=== PATIENT | male | born 1980 | race Two or more races ===

== ENCOUNTER 2017-07-19 03:29 | Emergency (ER) | payer MEDICAID, OTHER ==
[~2017-07-19] VITALS: Ht 177.8 cm; Wt 86.2 kg
[~2017-07-19 03:29] MED LIST: LITH150C PO; QUET25TA PO
--- NOTE | 2017-07-19 03:57 | NUR ---
PT TO ER BED 6. PT BIBRA FROM THE STREET FOR "WHEEZING". 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 VSS/RESP EVEN UNLABORED/NAD NOTED/AFEBRILE/SKIN WARM AND DRY/DENIES N-V-D/AOX4. AWAITING MD RICKETTS.
[2017-07-19] MEDS ORDERED: IPRATROPIUM NEB FS 0.5 MG/2.5 ML AMPUL.NEB ONE (04:51)
[2017-07-19] MEDS ORDERED: ALBUTEROL FS 2.5 MG/3 ML VIAL.NEB ONE (04:51)
--- NOTE | 2017-07-19 04:55 | NUR ---
RT AT BEDSIDE FOR CARLTON AGUILERA
[2017-07-19] MEDS ORDERED: ALBUTEROL FS 2.5 MG/0.5 ML VIAL.NEB NEB ONE (05:00)
[2017-07-19] MEDS ORDERED: IPRATROPIUM NEB FS 0.5 MG/2.5 ML AMPUL.NEB NEB ONE (05:00)
--- NOTE | 2017-07-19 05:25 | NUR ---
Patient discharged to home in stable condition. Written and verbal after care instructions given. Patient verbalizes understanding of instruction. Patient ambulatory with a steady gait.
[2017-07-19 05:26] VITALS: BP 127/65
== END 2017-07-19 05:26 | disposition home or self-care (01) ==
LOC: ER 03:32
DX: J98.01 Acute bronchospasm (principal); J18.9 Pneumonia, unspecified organism; F20.9 Schizophrenia, unspecified; F17.200 Nicotine dependence, unspecified, uncomplicated
CPT/HCPCS: 71045; 94640; 99283; A4606; Z7610

== ENCOUNTER 2018-03-27 01:10 | Emergency (ER) | payer MEDICAID ==
[~2018-03-27] VITALS: Ht 190.5 cm; Wt 104.3 kg
[2018-03-27 01:18] VITALS: BP 137/95
[2018-03-27] MEDS ORDERED: ONDANSETRON 4 MG TAB.RAPDIS ONE (01:59)
[2018-03-27] MEDS ORDERED: ONDANSETRON 4 MG TAB.RAPDIS SL ONE (02:00)
== END 2018-03-27 02:08 | disposition home or self-care (01) ==
LOC: ER 01:14
DX: R11.0 Nausea (principal); J45.909 Unspecified asthma, uncomplicated; F20.9 Schizophrenia, unspecified; L30.9 Dermatitis, unspecified; F17.200 Nicotine dependence, unspecified, uncomplicated
CPT/HCPCS: 99283; A4606; Q0162; Z7610

== ENCOUNTER 2021-04-16 02:20 | Emergency (ER) | payer SELFPAY ==
[~2021-04-16] VITALS: Ht 188 cm; Wt 94.3 kg
--- NOTE | 2021-04-16 02:48 | NUR ---
pt bibself c/o left foot pain s/p being d/c for left foot cellulitis. pt aaox4 breathing evenly and unlabored. pt attached to monitor and pox. Upon assessment, pt left foot swollen. MD at bedside. Pt given blanket and call light within reach
--- NOTE | 2021-04-16 03:42 | NUR ---
pt sitting quietly watching tv, attached to monitor and pox.
[2021-04-16 04:40] LABS: HEMOGLOBIN 13.6 g/dL (13.5-17.5); NEUTROPHILS % (AUTO) 73.8 % (43.0-81.0); WHITE BLOOD COUNT (AUTO) 13.5 K/uL (4.3-11.0)
[2021-04-16 04:44] LABS: BASOPHILS # (AUTO) 0.1 K/uL (0.0-0.2); BASOPHILS % (AUTO) 0.6 % (0.0-2.0); EOSINOPHILS % (AUTO) 1.4 % (0.0-6.0); HEMATOCRIT 43 % (39-51); LYMPHOCYTES # (AUTO) 2.4 K/uL (0.8-4.8); LYMPHOCYTES % (AUTO) 17.6 % (20.0-44.0); MEAN CORPUSCULAR HGB CONC 32 g/dl (31.0-36.0); MEAN CORPUSCULAR VOLUME 80 fL (80-96); MONOCYTES # (AUTO) 0.9 K/uL (0.1-1.30); MONOCYTES % (AUTO) 6.6 % (2.0-12.0); NEUTROPHILS # (AUTO) 9.9 K/uL (1.8-8.9); PLATELET COUNT (AUTO) 362 K/uL (150-450); RED BLOOD CELL COUNT(AUTO) 5.37 MIL/uL (4.5-6.0)
[2021-04-16 04:47] LABS: CALCIUM, SERUM 9.2 mg/dL (8.5-10.1); CREATININE 0.8 mg/dL (0.6-1.3); POTASSIUM 3.8 mmol/L (3.5-5.1)
--- NOTE | 2021-04-16 04:50 | NUR ---
us at bedside
[2021-04-16] MEDS ORDERED: CEPHALEXIN MONOHYDRATE 500 MG CAPSULE PO ONE (05:42)
[2021-04-16] MEDS: CEPHALEXIN MONOHYDRATE 500 MG CAPSULE PO ONE (05:44)
--- NOTE | 2021-04-16 05:50 | NUR ---
xray at bedside
[2021-04-16] MEDS ORDERED: IBUP-1955 PO (06:29)
[2021-04-16] MEDS ORDERED: CEPH500C2 PO (06:29)
[2021-04-16 06:47] VITALS: BP 130/70
--- NOTE | 2021-04-16 06:47 | NUR ---
Patient discharged to home in stable condition. Written and verbal after care instructions given. Patient verbalizes understanding of instruction. RX given
== END 2021-04-16 06:48 | disposition home or self-care (01) ==
LOC: ER 02:22
DX: M79.604 Pain in right leg (principal); J45.909 Unspecified asthma, uncomplicated; F20.9 Schizophrenia, unspecified; F17.200 Nicotine dependence, unspecified, uncomplicated; Z79.899 Other long term (current) drug therapy
CPT/HCPCS: 36415; 73590-TC; 73630-TC; 80048-TC; 85025-TC; 93971-TC

== ENCOUNTER 2021-08-04 07:27 | Emergency (ER) | payer MEDICAID ==
[~2021-08-04] VITALS: Ht 188 cm; Wt 113.4 kg
[~2021-08-04 07:27] MED LIST changes: +CEPH500C2 PO; +IBUP-1955 PO
--- NOTE | 2021-08-04 07:53 | NUR ---
The patient bibs for "Been Coughing/congested/SOB/Bronchitis last 4d". In room air and respiration regular/unlabored. Will continue to monitor the patient.
--- NOTE | 2021-08-04 07:55 | NUR ---
COVID ANTIGEN SWAB DONE AND SENT TO THE LAB
--- NOTE | 2021-08-04 08:08 | NUR ---
X-RAY TECH AT THE BEDSIDE
[2021-08-04] MEDS ORDERED: IPRATROPIUM NEB FS 0.5 MG/2.5 ML AMPUL.NEB ONE (08:15)
[2021-08-04] MEDS ORDERED: ALBUTEROL FS 2.5 MG/3 ML VIAL.NEB ONE (08:15)
[2021-08-04] MEDS ORDERED: ALBUTEROL FS 2.5 MG/3 ML VIAL.NEB CONTNEB ONE (08:30)
[2021-08-04] MEDS ORDERED: IPRATROPIUM NEB FS 0.5 MG/2.5 ML AMPUL.NEB NEB ONE (08:30)
[2021-08-04] MEDS ORDERED: ALBU8.5H8 INH (10:56)
[2021-08-04] MEDS ORDERED: AZIT250T13 PO (10:56)
[2021-08-04] MEDS ORDERED: PRED20TA PO (10:56)
[2021-08-04] MEDS ORDERED: predniSONE 20 MG TABLET ONE (10:58)
[2021-08-04] MEDS ORDERED: predniSONE 50 MG TABLET PO ONE (11:00)
--- NOTE | 2021-08-04 11:45 | NUR ---
Patient discharged to home in stable condition. Written and verbal after care instructions given. Patient verbalizes understanding of instruction.
[2021-08-04 11:46] VITALS: BP 142/90
== END 2021-08-04 12:08 | disposition home or self-care (01) ==
LOC: ER 07:29
DX: J20.9 Acute bronchitis, unspecified (principal); I10 Essential (primary) hypertension; Z59.00 Homelessness unspecified; F20.9 Schizophrenia, unspecified; F17.210 Nicotine dependence, cigarettes, uncomplicated; J45.909 Unspecified asthma, uncomplicated; Z20.822 Contact with and (suspected) exposure to COVID-19; Z79.899 Other long term (current) drug therapy
CPT/HCPCS: 71045; 87426; 94640; 94799; 99285; C9803; J7512

== ENCOUNTER 2024-03-07 11:03 | Emergency (ER) | payer MEDICAID, OTHER ==
[~2024-03-07] VITALS: Ht 195.6 cm; Wt 136.1 kg
[~2024-03-07 11:03] MED LIST changes: +ALBU8.5H8 INH; +AZIT250T13 PO; +PRED20TA PO
[2024-03-07 11:24] VITALS: BP 160/92; TEMP 98.5
[2024-03-07] MEDS ORDERED: OLAN20TA3 PO (11:28)
[2024-03-07] MEDS ORDERED: METF-440 PO (11:28)
[2024-03-07 11:35] VITALS: O2SAT 100
== END 2024-03-07 11:35 | disposition home or self-care (01) ==
LOC: ER 11:03
DX: F20.9 Schizophrenia, unspecified (principal); J45.998 Other asthma; L30.9 Dermatitis, unspecified; F17.200 Nicotine dependence, unspecified, uncomplicated; Z60.2 Problems related to living alone; Z76.0 Encounter for issue of repeat prescription

== ENCOUNTER 2024-04-20 18:55 | Emergency (ER) | payer OTHER ==
[~2024-04-20] VITALS: Ht 198.1 cm; Wt 125.6 kg
[~2024-04-20 18:55] MED LIST changes: +METF-440 PO; +OLAN20TA3 PO
[2024-04-20 18:59] VITALS: BP 135/78; TEMP 98.4; O2SAT 99
[2024-04-20] MEDS ORDERED: METF-440 PO (19:26)
[2024-04-20] MEDS ORDERED: OLAN20TA3 PO (19:26)
== END 2024-04-20 19:33 | disposition home or self-care (01) ==
LOC: ER 18:57
DX: E11.9 Type 2 diabetes mellitus without complications (principal); F20.9 Schizophrenia, unspecified; F17.200 Nicotine dependence, unspecified, uncomplicated; J45.909 Unspecified asthma, uncomplicated; Z76.0 Encounter for issue of repeat prescription; Z79.1 Long term (current) use of non-steroidal anti-inflammatories (NSAID); Z79.52 Long term (current) use of systemic steroids; Z79.84 Long term (current) use of oral hypoglycemic drugs; Z60.2 Problems related to living alone